=== PATIENT | male | born 1960 | race Caucasian/White ===

== ENCOUNTER → 2024-05-19 07:23 | Outpatient (REF) | payer OTHER, SELFPAY | LOC: HWRAD 07:23 | PROVIDERS: ATTENDING PHYSICIAN Family Medicine | DX: R10.11 Right upper quadrant pain (principal) | CPT/HCPCS: 76700 ==

== ENCOUNTER → 2025-06-15 14:48 | Outpatient (REF) | payer OTHER, SELFPAY | LOC: MRI 3T 14:48 | PROVIDERS: ATTENDING PHYSICIAN Family Medicine | DX: K76.0 Fatty (change of) liver, not elsewhere classified (principal); R07.81 Pleurodynia | CPT/HCPCS: 74183; A9575 ==